=== PATIENT | male | born 1975 | race African-American/Black ===

== ENCOUNTER 2022-08-27 05:00 | Emergency (ER) | payer OTHER ==
[~2022-08-27] VITALS: Ht 172.7 cm; Wt 102.1 kg
--- NOTE | 2022-08-27 05:58 | NUR ---
BIB GF FROM HOME C/O R UNDERARM ABSCESS & PAIN X10 DAYS. TDAP UTD. PT A/OX4. TOLERATING R/A WELL WITH NO SOB. CONNECTED PT TO POX AND MONITOR. SAFETY MEASURES IN PLACE.
--- NOTE | 2022-08-27 06:13 | NUR ---
[employer] SH[employer] AT PT'S BEDSIDE
--- NOTE | 2022-08-27 06:25 | NUR ---
DR. PEREZ YOUNG AT PT'S BEDSIDE
[2022-08-27 06:27] LABS: BASOPHILS % (AUTO) 0.1 % (0.0-2.0); HEMATOCRIT 37 % (39-51); HEMOGLOBIN 12.4 g/dL (13.5-17.5); LYMPHOCYTES # (AUTO) 0.8 K/uL (0.8-4.8); LYMPHOCYTES % (AUTO) 6.3 % (20.0-44.0); MEAN CORPUSCULAR HGB CONC 34 g/dl (31.0-36.0); MEAN CORPUSCULAR VOLUME 83 fL (80-96); MONOCYTES # (AUTO) 1.2 K/uL (0.1-1.30); MONOCYTES % (AUTO) 9.4 % (2.0-12.0); NEUTROPHILS # (AUTO) 10.4 K/uL (1.8-8.9); NEUTROPHILS % (AUTO) 84.2 % (43.0-81.0); PLATELET COUNT (AUTO) 223 K/uL (150-450); RED BLOOD CELL COUNT(AUTO) 4.43 MIL/uL (4.5-6.0); WHITE BLOOD COUNT (AUTO) 12.3 K/uL (4.3-11.0)
[2022-08-27] MEDS ORDERED: MORPHINE SULFATE INJ 4 MG/ML DISP.SYRIN ONE (06:47)
[2022-08-27] MEDS ORDERED: ONDANSETRON HCL/PF 4 MG/2 ML VIAL ONE (06:47)
[2022-08-27] MEDS ORDERED: VANCOMYCIN 1 GM VIAL ONE (06:47)
[2022-08-27] MEDS ORDERED: IOHEXOL-300 100 ML VIAL IV ONE (06:57)
[2022-08-27] MEDS ORDERED: IV NS 0.9% 250 ML IV ONE (06:58)
[2022-08-27] MEDS ORDERED: CT SWABBABLE VALVE TRANS SET 1 EA INFUS.SET MC ONE (06:58)
[2022-08-27] MEDS ORDERED: VANCOMYCIN 1 GM in IV D5W 250 ML IV ONE (07:00)
[2022-08-27] MEDS ORDERED: MORPHINE SULFATE INJ 2 MG/ML DISP.SYRIN IV ONE (07:00)
[2022-08-27] MEDS ORDERED: ONDANSETRON HCL/PF 4 MG/2 ML VIAL IV ONE (07:00)
[2022-08-27] MEDS ORDERED: CEFTRIAXONE 1GM BAG (ER ONLY) 50 ML IV ONE (07:00)
[2022-08-27] MEDS ORDERED: IV NS 0.9% 1,000 ML BAG IV ONE (07:00)
[2022-08-27 07:01] LABS: ALBUMIN 3.4 g/dL (3.4-5.0); BILIRUBIN,DIRECT 0.2 mg/dL (0.0-0.2); BILIRUBIN,TOTAL 0.6 mg/dL (0.2-1.0); CALCIUM, SERUM 9.3 mg/dL (8.5-10.1); TOTAL PROTEIN, SERUM 7.5 g/dL (6.4-8.2)
--- NOTE | 2022-08-27 07:01 | NUR ---
IV ESTABLISHED; RAC #20G S/L
[2022-08-27 07:07] LABS: POTASSIUM 2.8 mmol/L (3.5-5.1)
--- NOTE | 2022-08-27 07:07 | NUR ---
COVID SWAB COLLECTED AND SENT TO LAB
--- NOTE | 2022-08-27 07:07 | NUR ---
K 2.8
--- NOTE | 2022-08-27 07:32 | NUR ---
PT TAKEN TO CT VIA GEMMA
[2022-08-27] MEDS ORDERED: POTASSIUM CHLORIDE 20 MEQ TAB.PRT.SR PO ONE ×2 (08:54→09:00)
[2022-08-27] MEDS ORDERED: HYDR25TA4 PO (09:09)
[2022-08-27] MEDS ORDERED: SIMV-46 PO (09:09)
[2022-08-27] MEDS ORDERED: SULF1TAB48 PO (09:09)
[2022-08-27] MEDS ORDERED: CEPH500C2 PO (09:09)
--- NOTE | 2022-08-27 09:24 | NUR ---
IV removed. Catheter intact and site benign. Pressure and 4x4 applied to site. No bleeding noted.Patient discharged to home in stable condition. Written and verbal after care instructions given. Patient verbalizes understanding of instruction.
[2022-08-27 09:25] VITALS: BP 174/100
== END 2022-08-27 09:25 | disposition home or self-care (01) ==
LOC: ER 05:00
DX: L03.313 Cellulitis of chest wall (principal); I10 Essential (primary) hypertension; E87.6 Hypokalemia; U07.1 COVID-19; Z91.14 Patient's other noncompliance with medication regimen; D72.829 Elevated white blood cell count, unspecified; E78.5 Hyperlipidemia, unspecified; D69.6 Thrombocytopenia, unspecified
CPT/HCPCS: 99285; 96365; 71260; 96375; 96367; 87426; 85025; 80048; 87040 ×2; 83605; 80076; 36415; J2270; J3370; J2405; J7030; J7050; J0696; Q9967; C9803